=== PATIENT | male | born 1995 | race Caucasian/White ===

== ENCOUNTER 2016-08-30 20:48 | Emergency (ER) | payer OTHER | END 2016-08-30 21:18 | disposition home or self-care (01) | LOC: ER1 20:48 | DX: L70.8 Other acne (principal); F17.210 Nicotine dependence, cigarettes, uncomplicated | CPT/HCPCS: 99282 ==

== ENCOUNTER 2016-09-03 15:34 | Emergency (ER) | payer OTHER | END 2016-09-03 17:30 | disposition home or self-care (01) | LOC: ER1 15:34 | DX: L02.01 Cutaneous abscess of face (principal); F17.210 Nicotine dependence, cigarettes, uncomplicated | CPT/HCPCS: 10060; 87070; 87205; 99282 ==